=== PATIENT | male | born 1995 | race Caucasian/White ===

== ENCOUNTER 2019-02-25 04:21 | Emergency (ER) | payer BC ==
[2019-02-25] MEDS ORDERED: prednisoLONE Acetate 1% Ophth Susp 5 ML Bottle EYELF ONE (04:34)
--- NOTE | 2019-02-25 04:39 | EDM.PDOC ---
ED HPI GENERAL MEDICAL PROBLEM - General Chief Complaint: Eye Problems Stated Complaint: LEFT EYE PAIN AND SWELLING Time Seen by Provider: 02/25/19 04:34 Source of Information: Reports: Patient History Limitations: Reports: No Limitations - History of Present Illness INITIAL COMMENTS - FREE TEXT/NARRATIVE: 24-year-old male presents to the ED from the workplace. Reports within the last hour he developed sudden onset of marked swelling and pain in his left eye. No chance that any form body's gun in the eye. 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 He does report putting horses earlier in the evenin his right eye is completely normal. Wears eyeglasses and no contact lenses. g and may have had a horse dander/hair on his gloves. States the eyes excessively tearful. Reports more pain than itching. Vision is slightly blurred. Onset: Today Onset Date: 02/25/19 Onset Time: 03:15 Duration: Minutes: Location: Reports: Face (Left eye pain and swelling) Quality: Reports: Ache, Other Severity: Moderate (Pain) Improves with: Reports: None Worsens with: Reports: None Context: Denies: Activity, Exercise, Lifting, Sick Contact, Trauma, Other Associated Symptoms: Reports: No Other Symptoms Treatments ORTHOPAEDIC DOCTOR: Reports: Other (see below) (None.) Left Eye Pain Score (Numeric/FACES): 5 - Related Data Allergies Allergy/AdvReac Type Severity Reaction Status Date / Time cat dander Allergy Sneezing Verified 09/22/18 06:35 dog dander Allergy Sneezing Verified 09/22/18 06:35 Home Meds: Home Meds Adalimumab [Humira] 40 mg SQ 09/22/18 [History] Esomeprazole Magnesium [Nexium] 20 mg PO DAILY 09/22/18 [History] FLUoxetine HCl [Prozac] 80 mg PO DAILY 09/22/18 [History] Past Medical History HEENT History: Reports: Other (See Below) Other HEENT History: glasses, hearing problems Gastrointestinal History: Reports: Other (See Below) Other Gastrointestinal History: chrons disease Psychiatric History: Reports: Depression - Past Surgical History HEENT Surgical History: Reports: Other (See Below) Other HEENT Surgeries/Procedures: facial reconstructive surgery Social & Family History - Family History Family Medical History: Noncontributory - Caffeine Use Caffeine Use: Reports: Coffee - Living Situation & Occupation Living situation: Reports: Single Occupation: Employed ED ROS GENERAL - Review of Systems Review Of Systems: See Below Constitutional: Reports: No Symptoms HEENT: Reports: Eye Discharge, Eye Pain (Left eye pain. See history of present illness), Glasses Respiratory: Reports: No Symptoms Cardiovascular: Reports: No Symptoms Endocrine: Reports: No Symptoms GI/Abdominal: Reports: No Symptoms ED EXAM GENERAL W FULL EYE - Physical Exam Exam: See Below Exam Limited By: No Limitations General Appearance: Alert, WD/WN, Mild Distress, Other (Left eye is obviously very swollen particularly the lower lid.) Eye Exam: Left Eye: Conjunctival Injection (He has diffuse edema of the lower conjunctiva due to severe allergic reaction), Bilateral Eye: Periorbital Changes (Markedly swollen as well.) Eyelids: Left: Edema (Lower eyelid. Minimal upper eyelid.), Lid Everted for Exam Conjunctiva & Sclera: Right: Other, Left: Conjunctival Edema (Severe lower half of the conjunctiva from allergic response), Injected Cornea Exam: Bilateral: Normal Appearance Extraocular Movements: Bilateral: Intact Pupils: Normal Accommodation Pupillary Reaction: Bilateral: Brisk Anterior Chamber: Bilateral: Normal Appearance Course - Vital Signs Last Recorded V/S: Last Vital Signs Temp 36.4 C 02/25/19 04:30 Pulse 91 02/25/19 04:30 Resp 18 02/25/19 04:30 BP 136/89 02/25/19 04:30 Pulse Ox 100 02/25/19 04:30 - Orders/Labs/Meds Meds: Medications Discontinued Medications Generic Name Dose Route Start Last Admin Trade Name Freq PRN Reason Stop Dose Admin Prednisolone Acetate 5 ml 02/25/19 04:34 02/25/19 04:41 Pred Forte 1% Ophth Susp EYELF 02/25/19 04:35 2 drop ONETIME ONE Administration - Radiology Interpretation Free Text/Narrative:: Evaluation the emergency room this morning in regards to sudden onset of severe swelling and pain left alae. Emanation reveals that this is a significant allergic response to the left alae. Something is gone into the side that you're allergic to such as animal dander/hair. It can be a chemical as well although I see no evidence of a chemical inflammation. The conjunctiva is markedly swollen in the inferior aspect of the eye and the lower eyelid is very puffy and swollen from allergic response. Treatment is to use Pred Forte ophthalmic drops 2 drops every 6 hours for 1 day. Usually the eye has pretty will return to normal in that timeframe. If further treatment is required it would be one drop every 8 hours for 1 more day. If URI is still symptomatic you need to return to medical care or eye doctor. Departure - Departure Time of Disposition: 04:42 Disposition: Home, Self-Care 01 Condition: Fair Clinical Impression: Allergic conjunctivitis of left eye - Discharge Information *PRESCRIPTION DRUG MONITORING PROGRAM REVIEWED*: Not Applicable *COPY OF PRESCRIPTION DRUG MONITORING REPORT IN PATIENT CHRISSY: Not Applicable Instructions: Allergic Conjunctivitis, Adult, [id number] Referrals: PCP,None [Primary Care Provider] - Forms: ED Department Discharge Additional Instructions: Evaluation the emergency room tonight in regards to development of sudden onset of left eye pain and swelling particularly of the lower eyelid. On examination the conjunctiva which is the sac overlying the white part of the eye is very swollen and filled with fluid due to allergic reaction response. The lower eyelid is also very swollen. No foreign bodies were identified within the eye. Something is cutting and into your eye that is provoked a significant allergic response. This is usually some form of animal dander or hair. It is particularly common in people allergic to cats and dogs and rabbits ,guinea pigs etc. treatment is 2 drops of Pred Forte eye drops to the left eye every 6 hours for 1 day. Usually the eye will be pretty well back to normal in that timeframe. If it remains mildly swollen or itchy may use one drop every 8 hours for 1 more day.
== END 2019-02-25 04:50 | disposition home or self-care (01) ==
LOC: JD.ED 04:21
DX: H10.12 Acute atopic conjunctivitis, left eye (principal); F32.9 Major depressive disorder, single episode, unspecified; Z79.899 Other long term (current) drug therapy; Z91.09 Other allergy status, other than to drugs and biological substances
CPT/HCPCS: 99283; A9270

== ENCOUNTER 2019-03-08 06:36 | Emergency (ER) | payer BC ==
--- NOTE | 2019-03-08 07:17 | EDM.PDOC ---
ED HPI GENERAL MEDICAL PROBLEM - General Chief Complaint: ENT Problem Stated Complaint: EAR INFECTION WITH BOTH EAR Time Seen by Provider: 03/08/19 06:57 Source of Information: Reports: Patient, RN Notes Reviewed History Limitations: Reports: No Limitations - History of Present Illness INITIAL COMMENTS - FREE TEXT/NARRATIVE: The patient states that he developed bilateral ear pain and a popping sound in both ears just before midnight. He has also noticed swelling to his right submandibular area the past 2 hours. No recent fever. The patient states that he has had similar symptoms numerous times in the past, due to ear infections. The patient has not taken any [id number] home remedies to treat his symptoms, however, he acknowledges that he uses a foaming earwax remover on a daily basis. Bilateral Ear Pain Score (Numeric/FACES): 4 - Related Data Allergies Allergy/AdvReac Type Severity Reaction Status Date / Time cat dander Allergy Sneezing Verified 09/22/18 06:35 dog dander Allergy Sneezing Verified 09/22/18 06:35 Home Meds: Home Meds Adalimumab [Humira] 40 mg SQ ASDIRECTED 09/22/18 [History] Esomeprazole Magnesium [Nexium] 20 mg PO DAILY 09/22/18 [History] FLUoxetine HCl [Prozac] 80 mg PO DAILY 09/22/18 [History] Past Medical History HEENT History: Reports: Allergic Rhinitis, Other (See Below) Other HEENT History: wears glasses Gastrointestinal History: Reports: GERD, Inflammatory Bowel Disease (Crohn disease) Psychiatric History: Reports: Depression - Past Surgical History HEENT Surgical History: Reports: Tonsillectomy, Other (See Below) (Facial reconstructive surgery) Social & Family History - Family History Family Medical History: Noncontributory - Tobacco Use Smoking Status *Q: Former Smoker Years of Tobacco use: 5 Packs/Tins Daily: 1 Month/Year Tobacco Last Used: Quit 2014 - Caffeine Use Caffeine Use: Reports: Coffee - Alcohol Use Alcohol Use History: Yes Alcohol Use Frequency: Socially (to excess twice a month) - Recreational Drug Use Recreational Drug Use: Yes Drug Use in Last 12 Months: No Recreational Drug Type: Reports: Marijuana/Hashish (last smoked 2012) - Living Situation & Occupation Living situation: Reports: Single, Other (with friends) Occupation: Employed (manager produce) ED ROS ENT - Review of Systems Review Of Systems: ROS reveals no pertinent complaints other than HPI. ED EXAM, ENT - Physical Exam Exam: See Below Exam Limited By: No Limitations General Appearance: Alert, WD/WN, No Apparent Distress Eye Exam: Bilateral Eye: EOMI, Normal Inspection Ears: Hearing Grossly Normal, Normal TMs, Canal Swelling (The skin of the bilateral canals are extremely dry and cracked) Nose: Normal Inspection, Normal Mucousa, No Blood Mouth/Throat: Normal Inspection, Normal Gums, Normal Lips, Normal Oropharynx, Normal Teeth Head: Atraumatic, Normocephalic Neck: Normal Inspection, Supple, Non-Tender, Full Range of Motion. No: Lymphadenopathy (L), Lymphadenopathy (R) Course - Vital Signs Last Recorded V/S: Last Vital Signs Temp 37.1 C 03/08/19 07:45 Pulse 68 03/08/19 07:45 Resp 16 03/08/19 07:45 BP 120/82 03/08/19 07:45 Pulse Ox 100 03/08/19 07:45 - Re-Assessments/Exams Free Text/Narrative Re-Assessment/Exam: 03/08/19 07:11 The patient does not have an ear infection, but he does appear to have extremely dry and cracked skin of both external auditory canals. I suspect that this dryness, which I don't see elsewhere on his body, is secondary to his using of a foaming earwax remover. The patient does not recall the name of the earwax remover, but if it foams, it is not Debrox. I recommended that he stop using the earwax remover. I recommended that he wash his ears when he bathes, dry the canals thoroughly, then apply a thin smear of some hand lotion, to help moisturize the skin. I noted that this may sting, initially. Departure - Departure Time of Disposition: 07:17 Disposition: Home, Self-Care 01 Condition: Good Clinical Impression: Irritation of external auditory canal - Discharge Information *PRESCRIPTION DRUG MONITORING PROGRAM REVIEWED*: Not Applicable *COPY OF PRESCRIPTION DRUG MONITORING REPORT IN PATIENT CHRISSY: Not Applicable Referrals: PCP,None [Primary Care Provider] - Forms: ED Department Discharge Additional Instructions: You were seen in the emergency room for pain to both ears. On examination, you do not have an ear infection, but the skin of both of your ear canals is extremely dry and cracked. We recommend that you stop using the foaming earwax remover. You may clean your ears when you bathe, however, you should then thoroughly dry the canals, then apply a thin smear of moisturizing hand lotion. This may sting, initially. If any other problems, please do not hesitate to return to the ER.
== END 2019-03-08 07:45 | disposition home or self-care (01) ==
LOC: JD.ED 06:36
DX: H93.8X3 Other specified disorders of ear, bilateral (principal); K21.9 Gastro-esophageal reflux disease without esophagitis; Z79.899 Other long term (current) drug therapy; Z91.09 Other allergy status, other than to drugs and biological substances; Z87.891 Personal history of nicotine dependence
CPT/HCPCS: 99282